=== PATIENT | male | born 1975 | race Caucasian/White ===

== ENCOUNTER → 2016-11-25 | Outpatient (CLI) | payer OTHER ==
[2016-11-25 20:52] LABS: Basophils # (A) 0.1 k/uL (0-0.2); Basophils % (A) 1 %; CH 29.6; CHCM 34.1; Eosinophils # (A) 0.2 k/uL (0-0.7); Eosinophils % (A) 4 %; HCT 44.5 % (39.0-53.0); HDW 2.68; Luc # (Auto) 0.18; Luc % (Auto) 3; Lymphocytes % (A) 30 %; MCH 29.4 pg (25.0-35.0); MCHC 33.8 g/dL (31.0-37.0); Mean Platelet Volume 8.2; Monocytes # (A) 0.5 k/uL (0-1.0); Monocytes % (A) 7 %; Neutrophils # (A) 3.9 k/uL (1.3-7.7); Neutrophils % (A) 57 %; RBC 5.11 m/uL (4.30-5.90); RDW 12.8 % (11.5-15.5); WBC 6.8 k/uL (3.8-10.6); WBC (Perox) 7.17
[2016-11-25 21:02] LABS: ALT 54 U/L (21-72); AST 41 U/L (17-59); Alkaline Phosphatase 79 U/L (38-126); Anion Gap 12 mmol/L; Blood Urea Nitrogen 15 mg/dL (9-20); Calcium 9.6 mg/dL (8.4-10.2); Carbon Dioxide 24 mmol/L (22-30); Chloride 104 mmol/L (98-107); Cholesterol 219 mg/dL (<200); Glucose 100 mg/dL (74-99); HDL Cholesterol 33 mg/dL (40-60); Non-African American GFR(MDRD) >60 (>60 ml/min/1.73 sqM); Potassium 4.6 mmol/L (3.5-5.1); Sodium 140 mmol/L (137-145); Total Bilirubin 0.8 mg/dL (0.2-1.3); Total Protein 7.4 g/dL (6.3-8.2); Triglycerides 290 mg/dL (<150)
[2016-11-25 21:17] LABS: Hemoglobin A1C 5.4 % (4.2-6.1)
== END | disposition home or self-care (01) ==
LOC: MMGSC 09:26
PROVIDERS: ATTEND Family Medicine
DX: R63.1 Polydipsia (principal); R35.0 Frequency of micturition; R63.5 Abnormal weight gain; Z83.3 Family history of diabetes mellitus
CPT/HCPCS: 36415; 80053; 80061; 83036; 84443; 85025